=== PATIENT | male | born 1935 | race Hispanic/Latino ===

== ENCOUNTER 2021-10-22 11:05 | Outpatient (CLI) | payer MEDICARE | END 2021-10-22 11:06 | disposition home or self-care (01) | LOC: MRI 11:05 | PROVIDERS: ATTEND Neurological Surgery | DX: M47.26 Other spondylosis with radiculopathy, lumbar region (principal); M47.815 Spondylosis without myelopathy or radiculopathy, thoracolumbar region; M47.817 Spondylosis without myelopathy or radiculopathy, lumbosacral region | CPT/HCPCS: 72148 ==

== ENCOUNTER 2021-12-18 10:17 | Outpatient (CLI) | payer MEDICARE | END 2021-12-18 10:18 | disposition home or self-care (01) | LOC: BICRAD 10:17 | PROVIDERS: ATTEND Nurse Practitioner Family | DX: M47.816 Spondylosis without myelopathy or radiculopathy, lumbar region (principal); M43.16 Spondylolisthesis, lumbar region | CPT/HCPCS: 72110 ==

== ENCOUNTER 2022-03-23 13:24 | Emergency (ER) | payer MEDICARE ==
[~2022-03-23 13:24] MED LIST: Iopamidol 370 76% 100 ML VIAL ONE
[2022-03-23 14:20] LABS: Hemoglobin 13.9 g/dL (14.0-18.0); Mean Corpuscular Hemoglobin 30.3 pg (27.0-31.0); Mean Corpuscular Volume 91.7 fl (78.0-98.0); Mean Platelet Volume 6.7 fL (7.4-10.4); Platelet Count 235 10x3/uL (130-400); RBC Distribution Width 11.4 % (11.5-14.5); Red Blood Cell (RBC) Count 4.59 mill/uL (4.70-6.10); White Blood Cell (WBC) Count 21.3 10x3/uL (4.8-10.8)
[2022-03-23 14:31] LABS: ALT (SGPT) 14 U/L (8-55); AST (SGOT) 15 U/L (5-34); Albumin 3.9 g/dL (3.4-4.8); Alkaline Phosphatase 50 U/L (40-110); Anion Gap 13 mmol/L (10-20); BUN (Urea Nitrogen) 15 mg/dL (8.4-25.7); Bilirubin, Total 0.5 mg/dL (0.2-1.2); Calc. Creatinine Clearance 0 mL/min (70-130); Calcium 9.2 mg/dL (7.8-10.44); Carbon Dioxide 24 mmol/L (23-31); Chloride 100 mmol/L (98-107); Estimated GFR 86; Glucose 149 mg/dL (83-110); Lipase 11 U/L (8-78); Protein, Total 6.9 g/dL (5.8-8.1); Sodium 133 mmol/L (136-145)
[2022-03-23 14:39] LABS: Band 6 % (5-11); Lymphocytes 14 % (21-51); MDiff Complete? YES; Monocytes 4 % (0-10); Neutrophil 71 % (42-75); Platelet Morphology Comment Appears Adequate; Polychromasia SLIGHT = 2-3 cells (100X) (0-2/hpf); Reactive Lymphocytes 4 % (0-10)
[2022-03-23] MEDS ORDERED: Fleet Enema 133 ML BOT PR SCH (15:45)
== END 2022-03-23 17:50 | disposition home or self-care (01) ==
LOC: ERS 13:24
DX: K62.89 Other specified diseases of anus and rectum (principal); K59.00 Constipation, unspecified; I10 Essential (primary) hypertension; Z79.82 Long term (current) use of aspirin
CPT/HCPCS: 36415; 74177; 80053; 83690; 85025; 93005; Q9967